=== PATIENT | female | born 1955 | race Caucasian/White ===

== ENCOUNTER 2017-08-09 10:06 | Outpatient (CLI) | payer SELFPAY ==
--- NOTE | 2017-08-10 14:06 | DEXA Report ---
DEXA SCAN: 08/09/2017 CLINICAL INDICATION: Postmenopausal. TECHNIQUE: Dual energy x-ray absorptiometry (DXA) was performed on a [employer] system. Regions measured are the AP spine, femoral neck, and, if needed, forearm. COMPARISON: None. In accordance with the International Society for Clinical Densitometry (ISCD) guidelines, data from previous exams may be reanalyzed using current recommendations and techniques. This is done to allow a more accurate basis for comparison with the current study. FINDINGS The data for the lumbar spine is as follows: REGION BMD (g/cm/cm) T-SCORE Z-SCORE L1 0.789 -2.8 -1.4 L2 0.856 -2.9 -1.4 L3 0.895 -2.5 -1.1 L4 1.253 0.4 1.9 TOTAL 0.978 -1.7 -0.3 NOTE: All evaluable vertebrae are used for classification. The data for the hip is as follows: REGION BMD (g/cm/cm) T-SCORE Z-SCORE Neck 0.779 -1.9 -0.5 TOTAL 0.710 -2.4 -1.3 NOTE: The femoral neck or total proximal femur, whichever is lowest, is used for classification. IMPRESSION: THE WHO CLASSIFICATION BASED ON THE INTERNATIONAL REFERENCE STANDARD IS OSTEOPENIA. THE FRACTURE RISK IS INCREASED. RECOMMENDATION: Patients with diagnosis of osteoporosis or osteopenia should have regular bone mineral density assessment. For those eligible for Medicare, routine testing is allowed once every 2 years. Testing frequency can be increased for patients who have rapidly progressing disease or for those who are receiving medical therapy to restore bone mass. COMMENT: World Health Organization (WHO) definitions for osteoporosis and osteopenia: NORMAL BMD: T-score at -1.0 or higher, fracture risk is low. OSTEOPENIA BMD: T-score between -1.0 and -2.5, fracture risk is increased. OSTEOPOROSIS BMD: T-score at -2.5 or lower, fracture risk high. National Osteoporosis Foundation recommends: 1. Obtain adequate dietary calcium (at least 1200 mg per day) and vitamin D (400 -800 international units per day). 2. Participate, as appropriate, in regular weightbearing and muscle- strengthening exercise. 3. Avoid tobacco use and reduce alcohol and caffeine intake. 4. For more detailed information see the website at www.NOF.org. MTDD
== END 2017-08-09 10:07 | disposition home or self-care (01) ==
LOC: DI 10:06
PROVIDERS: ATTEND Family Medicine
DX: Z13.820 Encounter for screening for osteoporosis (principal); M85.89 Other specified disorders of bone density and structure, multiple sites
CPT/HCPCS: 77080

== ENCOUNTER 2017-09-20 08:03 | Day surgery (SDC) | payer OTHER ==
[2017-09-20] MEDS ORDERED: LACTATED RINGERS 1,000 ML IV ONE (08:14)
[2017-09-20] MEDS ORDERED: fentaNYL 100 MCG/2 ML VIAL IVP ONE (09:25)
[2017-09-20] MEDS ORDERED: MIDAZOLAM 2 MG/2 ML VIAL IVP ONE (09:25)
[2017-09-20 10:46] VITALS: BP 100/51
== END 2017-09-20 08:04 | disposition home or self-care (01) ==
LOC: SDS 08:03
PROVIDERS: ATTEND Surgery
PROC: 0DJD8ZZ Inspection of Lower Intestinal Tract, Via Natural or Artificial Opening Endoscopic (ICD-10-PCS; principal; 2017-09-20 09:00)
DX: Z12.11 Encounter for screening for malignant neoplasm of colon (principal); K57.30 Diverticulosis of large intestine without perforation or abscess without bleeding; K64.8 Other hemorrhoids; E11.9 Type 2 diabetes mellitus without complications; Z79.4 Long term (current) use of insulin; Z96.41 Presence of insulin pump (external) (internal); J45.909 Unspecified asthma, uncomplicated
CPT/HCPCS: 45378; J7120

== ENCOUNTER 2018-09-19 09:35 | Outpatient (CLI) | payer OTHER ==
--- NOTE | 2018-09-20 09:15 | DEXA Report ---
Reason: OSTEOPOROSIS Procedure Date: 09/19/2018 Accession Number: [id number] / [id number] Procedure: DEX - Dexa Spine and/or Hip CPT Code: FULL RESULT: EXAM: Dexa Spine and/or Hip DATE: 09/19/2018 10:00 AM CLINICAL HISTORY: OSTEOPOROSIS TECHNIQUE: Dual energy x-ray absorptiometry (DXA) was performed on a [employer] System. Regions measured are the AP Spine, femoral neck, and if needed forearm. COMPARISON: 08/09/2017. In accordance with the International Society for Clinical Densitometry (ISCD) guidelines, data from previous exams may be reanalyzed using current recommendations and techniques. This is done to allow a more accurate basis for comparison with the current study. FINDINGS: The data for the lumbar spine is as follows: BMD (g/cm/cm) T-SCORE Z-SCORE REGION L1 0.824 -2.6 -0.9 L2 0.930 -2.3 -0.6 L3 0.994 -1.7 -0.1 L4 TOTAL 0.919 -2.1 -0.5 NOTE: All evaluable vertebrae are used for classification The data for the hip is as follows: BMD (g/cm/cm) T-SCORE Z-SCORE REGION Neck 0.801 -1.7 -0.2 TOTAL 0.733 -2.2 -1.0 NOTE: The femoral neck or total proximal femur, whichever is lowest, is used for classification. DXA RESULTS SUMMARY: Spine SCAN DATE AGE BMD CHANGE VS CHANGE VS PREVIOUS PREVIOUS % 09[birth year]19/2018 [age] 0[age]919 0.068* 8.0* 08[birth year]09/2017 61.6 0[age]851 * Denotes significant change at the 95% confidence level. Denotes dissimilar scan types or analysis methods. DXA RESULTS SUMMARY: Hip SCAN DATE AGE BMD CHANGE VS CHANGE VS PREVIOUS PREVIOUS % 09[birth year]19/2018 62.8 0.733 0.023 3.2 08/09/2017 [age] 0.710 * Denotes significant change at the 95% confidence level. Denotes dissimilar scan types or analysis methods. IMPRESSION: THE WHO CLASSIFICATION BASED ON THE INTERNATIONAL REFERENCE STANDARD IS OSTEOPENIA. THE FRACTURE RISK IS INCREASED. RECOMMENDATION: Patients with diagnosis of osteoporosis or osteopenia should have regular bone mineral density assessment. For those eligible for Medicare, routine testing is allowed once every 2 years. Testing frequency can be increased for patients who have rapidly progressing disease or for those who are receiving medical therapy to restore bone mass. COMMENT: World Health Organization (WHO) definitions for osteoporosis and osteopenia: NORMAL BMD: T-score at -1.0 or higher, fracture risk is low OSTEOPENIA BMD: T-score between -1.0 and -2.5, fracture risk is increased. OSTEOPOROSIS BMD: T-score at -2.5 or lower, fracture risk is high. National Osteoporosis Foundation recommends: 1. Obtain adequate dietary calcium (at least 1200 mg per day) and vitamin D (400-800 international units per day). 2. Participate, as appropriate, in regular weightbearing and muscle-strengthening exercise. 3. Avoid tobacco use and reduce alcohol and caffeine intake. 4. For more detailed information see the website at www.NOF.org.
== END 2018-09-19 09:36 | disposition home or self-care (01) ==
LOC: DI 09:35
PROVIDERS: ATTEND Family Medicine
DX: M85.89 Other specified disorders of bone density and structure, multiple sites (principal)
CPT/HCPCS: 77080

== ENCOUNTER 2020-09-03 10:52 | Outpatient (CLI) | payer OTHER | END 2020-09-03 10:53 | disposition home or self-care (01) | LOC: COV 10:52 | PROVIDERS: ATTEND Family Medicine | DX: Z20.828 Contact with and (suspected) exposure to other viral communicable diseases (principal) ==

== ENCOUNTER 2020-10-07 11:40 | Outpatient (CLI) | payer OTHER | END 2020-10-07 11:41 | disposition home or self-care (01) | LOC: COV 11:40 | PROVIDERS: ATTEND Family Medicine | DX: Z20.828 Contact with and (suspected) exposure to other viral communicable diseases (principal) ==

== ENCOUNTER 2020-12-13 10:40 | Outpatient (CLI) | payer OTHER ==
[2020-12-13 11:44] VITALS: BP 92/56
--- NOTE | 2020-12-13 11:44 | SLEEP CARE CONSULTATION ---
Information from patient questionnaire entered by Viola Umaña. I have reviewed and concur with the information entered by Viola Umaña. This document represents the service I personally performed and the decisions made by me, Yaima Hickey ARNP. History of Present Illness Service Date and Time: 12/13/2020 1040 Reason for Visit: New patient Chief Complaint: reports: Insomnia, Unrefreshed sleep, Snoring, Fatigue (general tiredness during the day), Other (possible sleep apnea, vision loss) Date of Onset: some for 30 years Usual bedtime: 11:30 pm Time it takes to fall asleep: 15 minutes Snores at night: No (maybe) Observed to quit breathing while asleep: No (sleep alone) Number of times waking at night: 3 Reasons for waking at night: reports: Snoring, Bathroom. denies: Choking, Gasping for air Toss, Turn, or Twitch while sleeping: No Recalls having dreams: Yes Usually gets out of bed at: 8:30-9 am Feels refreshed in the morning: Yes (sometimes) Morning headache: No Sleepy or fatigued during the day: Yes Ever fallen asleep while driving: No Takes day naps: Yes (rarely) Dreams during day naps: Yes (sometimes) Prior sleep studies: No Additional HPI information: I had the pleasure of seeing NILO DUNCAN today regarding the possibility of her having a sleep disorder. Her current complaints are insomnia, unrefreshed sleep and fatigue. 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 Her doctor did rule out other possible causes but MALIK can be a factor and she was sent here for evaluation. She has a history of sleep issues. She states as a child she did not sleep well due to turbulent environment. When she was 35 years old she was in a custody carrillo and stopped sleeping. She did not sleep once for 3 weeks. She has had issues with sleeping since this time. She has had Doxepin in the past with some improvement. She used to wake up about 3-4 AM and not able to go to sleep. She no longer takes the Doxepin. She needs 9 hours to feel rested. She feels tired most of the time. If she doesn't get 9 hours she is very sleepy during the day. She has woke herself up snoring. 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 Patient is Single and lives in [place]. Have you smoked in the past 12 months: No Quit date: until Alcohol use: No Caffeine use: Yes Caffeine amount and frequency: green tea, 1 cup every other day Family History Family history of sleep disordered breathing: Yes (sister) Family Hx Sleep Apnea: Sibling: Sleep apnea - Treated Allergies and Home Medications Drug allergies reviewed: Yes (NKDA) Home medication list reviewed: Yes Allergy and home medication list: insulin pump Levothyroxine Liothyronine Review of Systems Weight loss over past 5 years: 15 Respiratory: reports: shortness of breath, sputum production Gastrointestinal: reports: diarrhea Neurological: denies: headaches, seizure Psychiatric: reports: depression Ear/Nose/Throat: reports: nasal congestion, hoarseness, tonsillectomy, wisdom teeth removed (2 removed) Endocrine: reports: thyroid disease Physical Exam Blood Pressure: 92/56 Cuff size: wrist Heart Rate: 56 O2 Saturation: 98 Height: 5 ft 6 in Weight: 129 lb Body Mass Index: 20.8 BMI Classification: Healthy weight Neck circumference: 13 (inches) Nostrils: patent to airflow Turbinates: swollen Mouth and throat: narrow oropharynx Soft palate: long Hard palate: normal Uvula: normal Uvula visualization: 50% Mallampati Class II Tongue: enlarged in size with teeth beal on lateral edges Tonsils: absent bilaterally Heart: regular rate and rhythm Lungs: clear bilaterally Impression and Plan 1. Suspected Obstructive Sleep Apnea-Hypopnea Syndrome, as suggested by a history of irregular snoring, frequent awakening during the night, unrefreshed sleep and excessive daytime sleepiness. Narrow oropharynx and obesity are common predisposing factors for obstructive sleep apnea-hypopnea syndrome. I recommend proceeding to polysomnography to confirm the diagnosis and to assess severity. If the patient has significant sleep disordered breathing, a manual CPAP titration study will also be performed to find the optimal treatment pressure. I informed the patient of what the sleep studies involve and after some discussion, obtained agreement to proceed. The pathophysiology of obstructive sleep apnea-hypopnea syndrome was discussed with the patient and health risks of cardiovascular and cerebrovascular disease if not treated. 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 Patient agreed to plan. * Schedule polysomnography +- manual CPAP titration study and return in 1-2 weeks after the study to discuss result and initiate therapy. * Avoid long distance driving or driving when feeling sleepy. * Avoid sedative and muscle relaxant around bedtime. * Review instructions provided by trained office staff on how to prepare for the sleep study. * Return for follow-up after sleep study completed. Visit Type: In Office Time Spent with Patient (minutes): 35 Provider Statement: I spent 100% of the Face to Face Visit with the patient with greater than 50% spent counseling the patient and coordination of care.
== END 2020-12-13 10:41 | disposition home or self-care (01) ==
LOC: SC 10:40
PROVIDERS: ATTEND Nurse Practitioner Family
DX: G47.10 Hypersomnia, unspecified (principal); G47.8 Other sleep disorders; R06.83 Snoring
CPT/HCPCS: 99203; 99212

== ENCOUNTER 2021-01-20 11:17 | Outpatient (CLI) | payer OTHER | END 2021-01-20 11:18 | disposition home or self-care (01) | LOC: SC 11:17 | PROVIDERS: ATTEND Nurse Practitioner Family | DX: G47.33 Obstructive sleep apnea (adult) (pediatric) (principal) | CPT/HCPCS: 95806 ==

== ENCOUNTER 2021-02-06 14:21 | Outpatient (CLI) | payer OTHER ==
--- NOTE | 2021-02-06 14:59 | SLEEP CARE CONSULTATION ---
Information from patient questionnaire entered by Sacha Mcgarry. I have reviewed and concur with the information entered by Sacha Mcgarry. This document represents the service I personally performed and the decisions made by , Yaima Hickey ARNP. History of Present Illness Service Date and Time: 02/06/2021 1421 Initial [place] Sleepiness Scale score: 4 Current [place] Sleepiness Scale score: 4 Additional HPI information: NILO DUNCAN returns for follow up and results of the recently performed home sleep study. Patient has mild obstructive sleep apnea but only slept supine during her study. I explained the pathophysiology behind obstructive sleep apnea. We then spent quite a bit of time discussing different treatment options. For mild obstructive sleep apnea, surgery and oral appliance are alternatives to nasal CPAP therapy but in moderate or severe cases, nasal CPAP is the most effective and reliable treatment. Because apnea is primarily measured in supine position, then positional management therapy could be effective. Methods discussed such as positioning with pillows. I reviewed the impact of weight changes on sleep apnea and strongly recommended maintaining a healthy weight. Patient was cautioned about risks of drowsy driving until sleepiness symptoms resolve. Sleep Study - Results Type of Sleep Study: Home sleep study Prior sleep studies: No Polysomnography/Home Sleep Study results: Physician Impression: The quality of the study is good. The length of the study is adequate (> 240 minutes). Please also see the tabulated and graphic data. 1. Obstructive Sleep Apnea-Hypopnea (ICD-10 G47.33), mild, with an AHI of 7.2/hr and brad SaO2 of 83%. During the study, the patient had 46 apneas (45 obstructive, 0 central, 1 mixed) and 10 hypopneas. The longest episode lasted 116.0 seconds. The patient only slept supine during this study (supine AHI was 7.3 and non-supine, 0.00). 2. Hypoxemia (ICD-10 R09.02), mild, with the lowest oxygen saturation of 83 % and 9.8 minutes with SaO2 under 90%. Baseline oxygen saturation was normal (Average oxygen saturation was 94%). Allergies and Home Medications Home medication list reviewed: Yes (no new meds) Review of Systems Review of systems same as previous: Yes (no changes) Physical Exam Vital signs obtained and entered by: Telehealth visit to reduce exposure during Covid pandemic Height: 5 ft 6 in Impression and Plan 1. Obstructive Sleep Apnea-Hypopnea Syndrome, mild, with lowest oxygen saturation of 83%. Obviously this is the cause of the patients symptoms of unrefreshed sleep, and excessive daytime sleepiness. Positive pressure therapy could benefit diabetes. After discussion of treatment choices, patient decided to do some research and will call us back with her decision on which treatment she would like to try. * Patient will call back with decision on treatment choice. * Maintain a healthy weight. * Avoid alcohol consumption near bedtime. * Avoid supine sleep. * Return is dependant upon choice of treatment. Counseling Topics: Weight control Visit Type: Telehealth Video Video Type: MARIFERee Patient Location: [facility] Location of Provider: Office Patient agrees and consents to this telehealth visit type: Yes Patient agrees to have their insurance billed: Yes Time Spent with Patient (minutes): 23 Provider Statement: I spent 100% of the Telehealth Video Call with the patient with greater than 50% spent counseling the patient and coordination of care.
== END 2021-02-06 14:22 | disposition home or self-care (01) ==
LOC: SC 14:21
PROVIDERS: ATTEND Nurse Practitioner Family
DX: G47.33 Obstructive sleep apnea (adult) (pediatric) (principal)

== ENCOUNTER 2021-10-16 10:59 | Outpatient (CLI) | payer OTHER ==
--- NOTE | 2021-10-16 11:54 | DEXA Report ---
PROCEDURE: Dexa Spine and/or Hip INDICATIONS: OSTEOPOROSIS TECHNIQUE: Dual energy x-ray absorptiometry (DXA) was performed on a [employer] System. Regions measur ed are the AP Spine, femoral neck, and if needed forearm. COMPARISON: 09/19/2018 FINDINGS: Lumbar Spine: Bone Mineral Density 0.976 g/cm/cm,T score -1.6, osteopenia Left Hip: Bone Mineral Density 0.760 g/cm/cm,T score -2.0, osteopenia Left Femoral Neck: Bone Mineral Density 0.820 g/cm/cm, T score -1.6, osteopenia (T score greater or equal to -1.0: NORMAL) (T score from -1.1 to -2.4: OSTEOPENIA) (T score less than or equal to -2.5 to: OSTEOPOROSIS) Impression: OSTEOPENIA. Patient is at increased risk for fracture. Patients with diagnosis of osteoporosis or osteopenia should have regular bone mineral density assess ment. For those eligible for Medicare, routine testing is allowed once every 2 years. Testing frequ ency can be increased for patients who have rapidly progressing disease or for those who are receivin g medical therapy to restore bone mass. Reviewed by: Jakob Coon MD on 10/16/2021 11:53 AM PST Approved by: Jakob Coon MD on 10/16/2021 11:53 AM PST Station ID: [id number]
== END 2021-10-16 11:00 | disposition home or self-care (01) ==
LOC: DI 10:59
PROVIDERS: ATTEND Family Medicine
DX: M85.89 Other specified disorders of bone density and structure, multiple sites (principal)

== ENCOUNTER 2024-04-14 10:41 | Outpatient (CLI) | payer MEDICARE, OTHER ==
[2024-04-14 15:02] LABS: BILIRUBIN,URINE NEGATIVE (NEGATIVE); GLUCOSE, URINE (UA) NEGATIVE (NEGATIVE); KETONES,URINE (UA) NEGATIVE (NEGATIVE); LEUKOCYTE ESTERASE, URINE NEGATIVE (NEGATIVE); NITRITE,URINE NEGATIVE (NEGATIVE); OCCULT BLOOD,URINE NEGATIVE (NEGATIVE); PH,URINE 7.5 PH (5.0-7.5); PROTEIN,URINE NEGATIVE (NEGATIVE); UROBILINOGEN,URINE 0.2 (NORMAL) E.U./dL (NORMAL)
[2024-04-14 15:03] LABS: BASOPHILS # (AUTO) 0.1 10^3/uL (0.0-0.1); BASOPHILS % (AUTO) 0.8 %; EOSINOPHILS # (AUTO) 0.2 10^3/uL (0.0-0.7); EOSINOPHILS % (AUTO) 3.3 %; HCT - HEMATOCRIT 39.2 % (37.0-47.0); HGB - HEMOGLOBIN 12.8 g/dL (12.0-16.0); LYMPHOCYTES # (AUTO) 2.1 10^3/uL (1.5-3.5); LYMPHOCYTES % (AUTO) 32.1 %; MEAN CORPUSCULAR HGB CONC 32.7 g/dL (32.0-36.0); MEAN PLATELET VOLUME 9.5 fL (7.9-10.8); MONOCYTES # (AUTO) 0.5 10^3/uL (0.0-1.0); MONOCYTES % (AUTO) 7.1 %; NEUTROPHILS # (AUTO) 3.8 10^3/uL (1.5-6.6); NEUTROPHILS % (AUTO) 56.5 %; PLT - PLATELET COUNT 279 10^3/uL (130-450); RED BLOOD COUNT 4.26 10^6/uL (4.20-5.40); RED CELL DISTRIBUTION WIDTH 13.7 % (12.0-15.0); WHITE BLOOD COUNT 6.6 x10^3/uL (4.8-10.8)
[2024-04-14 15:19] LABS: BACTERIA,URINE None Seen /HPF (None Seen); CLARITY,URINE CLEAR (CLEAR); RBC,URINE None Seen /HPF (0-5); SQUAMOUS EPITHELIAL CELL,UR FEW Squamous (<= Few); WBC,URINE 0-3 /HPF (0-5)
[2024-04-14 15:48] LABS: CREATININE,URINE 100.3 mg/dL; MICROALBUMIN,URINE 1.2 mg/dL
[2024-04-14 15:50] LABS: % IRON SATURATION 48 % (20-50); ALBUMIN 4.1 g/dL (3.2-5.5); ALBUMIN/GLOBULIN RATIO 1.8 (1.0-2.2); ALKALINE PHOSPHATASE 72 IU/L (42-121); ALT ALANINE AMINOTRANSFERASE 14 IU/L (10-60); AST ASPARTATE AMINOTRANSFERASE 20 IU/L (10-42); BILIRUBIN,TOTAL 1.4 mg/dL (0.2-1.0); BUN - BLOOD UREA NITROGEN 12 mg/dL (6-20); CALCIUM 9.5 mg/dL (8.5-10.3); CARBON DIOXIDE - CO2 30 mmol/L (21-32); CHLORIDE 99 mmol/L (101-111); CHOL/HDL RATIO 2.8 (<4.4); CHOLESTEROL 199 mg/dL; CREATININE 0.6 mg/dL (0.6-1.3); CRP HIGH SENSITIVITY 0.94 mg/L; GFR - MDRD 99 (>89); GLUCOSE 118 mg/dL (74-104); HDL CHOLESTEROL 71 mg/dL; IRON 135 ug/dL (50-212); LDL CHOLESTEROL,CALCULATED 115 mg/dL; LDL/HDL RATIO 1.6 (<4.4); SODIUM 134 mmol/L (135-145); TOTAL IRON BINDING CAPACITY 281 ug/dL (250-450); TOTAL PROTEIN 6.4 g/dL (6.4-8.9); TRANSFERRIN 201 mg/dL (203-362); TRIGLYCERIDES 66 mg/dL (48-352); VLDL CHOLESTEROL 13 mg/dL
[2024-04-14 16:05] LABS: THYROID STIMULATING HORMONE 3.27 uIU/mL (0.34-5.60)
[2024-04-14 16:13] LABS: FERRITIN 58.6 ng/mL (11.0-306.8)
[2024-04-14 21:20] LABS: ESTIMATED AVERAGE GLUCOSE 163 mg/dL (70-100); HEMOGLOBIN A1c% 7.3 % (4.27-6.07)
[2024-04-15 06:15] LABS: VITAMIN D 25-HYDROXY 46.6 ng/mL (30.0-100.0)
== END 2024-04-14 10:42 | disposition home or self-care (01) ==
LOC: LAB.S 10:41
PROVIDERS: ATTEND Family Medicine
DX: E10.610 Type 1 diabetes mellitus with diabetic neuropathic arthropathy (principal); E03.9 Hypothyroidism, unspecified; D64.9 Anemia, unspecified; E78.5 Hyperlipidemia, unspecified; G64 Other disorders of peripheral nervous system; K90.0 Celiac disease; R79.89 Other specified abnormal findings of blood chemistry; E55.9 Vitamin D deficiency, unspecified
CPT/HCPCS: 36415; 80053; 80061; 81001; 81599; 82043; 82306; 82570; 82626; 82728; 83036; 83090; 83540; 83721; 84439; 84443; 84466; 84480; 84481; 84482; 85025; 86141

== ENCOUNTER 2024-06-22 13:07 | Outpatient (CLI) | payer MEDICARE, OTHER ==
--- NOTE | 2024-06-23 08:03 | Mammography Report ---
BILATERAL DIGITAL SCREENING MAMMOGRAM 3D/2D: 06/22/2024 CLINICAL: Routine screening. Comparison is made to exam dated: 08/09/2017 mammogram - [facility]. Both breasts are extremely dense, which lowers the sensitivity of mammography (category d />75% gland ular tissue). No significant masses, calcifications, or other findings are seen in either breast. There has been no significant interval change. IMPRESSION: NEGATIVE There is no mammographic evidence of malignancy. A 1 year screening mammogram is recommended. Based on the Tyrer Cuzick model (a risk assessment model) the patient's lifetime risk is 15.9% and he r 10 year risk is 9.0%. According to the ACR, ACS, and NCCN guidelines, an annual breast MRI exam emily ng with mammogram is recommended if the patient's lifetime risk is 20% or greater. This exam was interpreted at Station ID: [id number]. NOTE: For mammograms, a report in lay terms will be sent to the patient. Approximately 15% of breast malignancies will not be visualized mammographically. In the management of a palpable breast mass, a negative mammogram must not discourage biopsy of a clinically suspicious lesion. Electronically Signed By: Regan Lora M.D. [facility] [place]:06/22/2024 13:52:15 letter sent: No_Letter ACR BI-RADS Category 1: Negative [id number] PARENCHYMAL PATTERN: (VD) - The breast(s) demonstrate(s) extremely dense parenchyma, limiting the sen sitivity of mammography. BI-RADS CATEGORY: (1) - 1 RECOMMENDATION: (ANNUAL) - Recommend routine annual screening mammography. [id number] 1 year screening LATERALITY: (B)
== END 2024-06-22 13:08 | disposition home or self-care (01) ==
LOC: DI 13:07
PROVIDERS: ATTEND Family Medicine
DX: Z12.31 Encounter for screening mammogram for malignant neoplasm of breast (principal)

== ENCOUNTER 2024-07-07 14:47 | Outpatient (CLI) | payer MEDICARE, OTHER | END 2024-07-07 14:48 | disposition home or self-care (01) | LOC: LAB.S 14:47 | PROVIDERS: ATTEND Family Medicine | DX: E10.610 Type 1 diabetes mellitus with diabetic neuropathic arthropathy (principal); E78.5 Hyperlipidemia, unspecified; E03.9 Hypothyroidism, unspecified; E55.9 Vitamin D deficiency, unspecified; R53.83 Other fatigue; R79.89 Other specified abnormal findings of blood chemistry; R19.7 Diarrhea, unspecified ==

== ENCOUNTER 2024-07-12 14:41 | Outpatient (CLI) | payer MEDICARE, OTHER ==
[2024-07-12 20:24] LABS: BASOPHILS % (AUTO) 0.6 %; EOSINOPHILS # (AUTO) 0.1 10^3/uL (0.0-0.7); EOSINOPHILS % (AUTO) 1.7 %; HCT - HEMATOCRIT 40.1 % (37.0-47.0); HGB - HEMOGLOBIN 12.7 g/dL (12.0-16.0); LYMPHOCYTES # (AUTO) 2.1 10^3/uL (1.5-3.5); LYMPHOCYTES % (AUTO) 29.4 %; MEAN CORPUSCULAR HEMOGLOBIN 30.1 pg (27.0-31.0); MEAN CORPUSCULAR HGB CONC 31.7 g/dL (32.0-36.0); MEAN PLATELET VOLUME 9.6 fL (7.9-10.8); MONOCYTES # (AUTO) 0.5 10^3/uL (0.0-1.0); MONOCYTES % (AUTO) 7.2 %; NEUTROPHILS # (AUTO) 4.3 10^3/uL (1.5-6.6); PLT - PLATELET COUNT 303 10^3/uL (130-450); RED BLOOD COUNT 4.22 10^6/uL (4.20-5.40); RED CELL DISTRIBUTION WIDTH 13.2 % (12.0-15.0)
[2024-07-12 20:27] LABS: CRP HIGH SENSITIVITY 0.78 mg/L
[2024-07-12 20:40] LABS: THYROID STIMULATING HORMONE 3.01 uIU/mL (0.34-5.60)
[2024-07-12 21:10] LABS: ESTIMATED AVERAGE GLUCOSE 160 mg/dL (70-100); HEMOGLOBIN A1c% 7.2 % (4.27-6.07)
[2024-07-12 21:46] LABS: ALBUMIN 4.3 g/dL (3.2-5.5); ALBUMIN/GLOBULIN RATIO 1.7 (1.0-2.2); CALCIUM 9.9 mg/dL (8.5-10.3); CREATININE 0.8 mg/dL (0.6-1.3); POTASSIUM 4.1 mmol/L (3.5-4.5); TOTAL PROTEIN 6.8 g/dL (6.4-8.9)
== END 2024-07-12 14:42 | disposition home or self-care (01) ==
LOC: LAB.S 14:41
PROVIDERS: ATTEND Family Medicine
DX: E10.610 Type 1 diabetes mellitus with diabetic neuropathic arthropathy (principal); E78.5 Hyperlipidemia, unspecified; E03.9 Hypothyroidism, unspecified; E55.9 Vitamin D deficiency, unspecified; R53.83 Other fatigue; R79.89 Other specified abnormal findings of blood chemistry
CPT/HCPCS: 36415; 80053; 81599; 82043; 82570; 83036; 83090; 84439; 84443; 84480; 84481; 84482; 85025; 86141

== ENCOUNTER 2024-07-19 11:05 | Outpatient (CLI) | payer MEDICARE, OTHER ==
--- NOTE | 2024-07-20 08:29 | DEXA Report ---
PROCEDURE: Dexa Spine and/or Hip INDICATIONS: POST MENOPAUSAL TECHNIQUE: Dual energy x-ray absorptiometry (DXA) was performed on a [employer] System. Regions measur ed are the AP Spine, femoral neck, and if needed forearm. COMPARISON: 10/16/2021 FINDINGS: Lumbar Spine: Bone Mineral Density: 1.014 g/cm/cm,T score: -1.3. Since the most recent prior study, there has been a statistically significant increase in bone mineral density by 9.1 percent. Left Femoral Neck: Bone Mineral Density: 0.867 g/cm/cm, T score: -1.2. Left Hip: Bone Mineral Density: 0.785 g/cm/cm,T score: -1.8. There has been no statistically significant change in bone mineral density since the prior study. FRAX risk factors: 10 year risk of major osteoporotic fracture: 8.3% major osteoporotic fracture = hip, clinical vertebral, proximal humerus, distal forearm 10 year risk of hip fracture: 1.0% (T score greater or equal to -1.0: NORMAL) (T score from -1.1 to -2.4: OSTEOPENIA) (T score less than or equal to -2.5 to: OSTEOPOROSIS) Impression: By WHO criteria, this patient has low bone density (osteopenia). Interval statistical increase in bone mineral density of the lumbar spine. No statistical interval ch sole in bone mineral density of the hip. Patients with diagnosis of osteoporosis or osteopenia should have regular bone mineral density assess ment. For those eligible for Medicare, routine testing is allowed once every 2 years. Testing frequ ency can be increased for patients who have rapidly progressing disease or for those who are receivin g medical therapy to restore bone mass. Reviewed by: Nikita Cowart MD on 07/20/2024 8:27 AM PDT Approved by: Nikita Cowart MD on 07/20/2024 8:27 AM PDT Station ID: [id number]
== END 2024-07-19 11:06 | disposition home or self-care (01) ==
LOC: DI 11:05
PROVIDERS: ATTEND Family Medicine
DX: M85.89 Other specified disorders of bone density and structure, multiple sites (principal)